=== PATIENT | male | born 1960 | race Caucasian/White ===

== ENCOUNTER → 2016-03-29 | Outpatient (CLI) | payer BC ==
[~2016-03-29] VITALS: Ht 182.9 cm; Wt 106.4 kg
[~2016-03-29] MED LIST: ASPI81TA57 PO; FENO48TA9 PO; GLC/500 PO; LISI20TA3 PO; OMEG10007 PO; SIMV20TA2 PO
[2016-03-29 16:08] VITALS: BP 156/92; PULSE 83; Ht 182.9 cm; Wt 106.4 kg
== END | disposition home or self-care (01) ==
LOC: C.NEUR 15:59
PROVIDERS: ATTEND Internal Medicine Pulmonary Disease
DX: G47.30 Sleep apnea, unspecified (principal); I10 Essential (primary) hypertension

== ENCOUNTER → 2017-05-30 | Outpatient (CLI) | payer OTHER ==
[~2017-05-30] VITALS: Ht 182.9 cm; Wt 106.7 kg
[2017-05-30 11:44] VITALS: BP 150/89; PULSE 94; Ht 182.9 cm; Wt 106.7 kg
== END | disposition home or self-care (01) ==
LOC: C.NEUR 11:15
PROVIDERS: ATTEND Internal Medicine Pulmonary Disease
DX: G47.33 Obstructive sleep apnea (adult) (pediatric) (principal)